=== PATIENT | male | born 1955 | race African-American/Black ===

== ENCOUNTER 2023-05-14 19:38 | Emergency (ER) | payer MEDICARE, MEDICAID ==
[~2023-05-14 19:38] MED LIST: AMLO5TAB88 PO; ASPI-1497 PO; ATOR20TA PO; DULO20CA18 PO; FERR-63 PO; FURO40TA5 PO; GABA-290 PO; LOSA-412 PO
[2023-05-14 19:44] VITALS: PULSE 98
== END 2023-05-14 22:48 | disposition left against medical advice (07) ==
LOC: ER 19:38
DX: R10.9 Unspecified abdominal pain (principal); Z53.21 Procedure and treatment not carried out due to patient leaving prior to being seen by health care provider